=== PATIENT | male | born 1990 | race Caucasian/White ===

== ENCOUNTER 2017-11-01 22:19 | Emergency (ER) | payer OTHER ==
--- NOTE | 2017-11-01 23:40 | XRay Report ---
FINAL REPORT PROCEDURE: XR CHEST ROUTINE 2V TECHNIQUE: PA and lateral chest radiographs were obtained. CPT 73497 HISTORY: frequent cough w/thick white sputum COMPARISON: No prior studies are available for comparison. FINDINGS: Heart: Normal. Mediastinum/Vessels: Normal. Lungs/Pleural space: Normal. Bony thorax: No acute osseous abnormality. Other: IMPRESSION: Normal examination.
--- NOTE | 2017-11-02 00:42 | Emergency Department Report ---
ED Medical Clearance HPI - General Chief complaint: Medical Clearance Stated complaint: FATIGUE, CONGESTION Time Seen by Provider: 11/01/17 23:41 Source: patient Mode of arrival: Ambulatory - History of Present Illness Initial comments: 27-year-old male with past medical history none presents with complaint of concern for having cystic fibrosis. Patient states that he has had intermittent cough for more than 5 years. Patient states he has seen his primary care doctor for this issue but it is a concern to him and is asking to even be tested for cystic fibrosis or to be referred to a automatic driller and reamer. Patient denies any chest pain shortness of breath fevers chills or productive cough at this time. States he occasionally gets cough with whitish sputum. Patient has no family history of cystic fibrosis. Denies being a smoker or using any drugs. Patient is awake alert and oriented 3. 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 Patient denies any mental health disorders or illicit substance use. MD Complaint: medical clearance request, other Onset/Timin -: year(s) Associated Symptoms: cough Home medications: Previous Rx's Medication Instructions Recorded Last Taken Type Brompheniramine/Pseudoephed/Dm 10 ml PO Q6H PRN #1 syrup 11/02/17 Unknown Rx [Bromfed Dm Cough Syrup] Allergies/Adverse reactions: Allergies Allergy/AdvReac Type Severity Reaction Status Date / Time No Known Allergies Allergy Unverified 11/01/17 22:37 ED Review of Systems ROS: Stated complaint: FATIGUE, CONGESTION Other details as noted in HPI Constitutional: denies: chills, fever Eyes: denies: eye pain, eye discharge, vision change ENT: denies: ear pain, throat pain Respiratory: cough (persistent intermittent cough for 5 years). denies: shortness of breath, wheezing Cardiovascular: denies: chest pain, palpitations Endocrine: no symptoms reported Gastrointestinal: denies: abdominal pain, nausea, diarrhea Genitourinary: denies: urgency, dysuria Musculoskeletal: denies: back pain, joint swelling, arthralgia Skin: denies: rash, lesions Neurological: denies: headache, weakness, paresthesias Psychiatric: denies: anxiety, depression Hematological/Lymphatic: denies: easy bleeding, easy bruising ED Past Medical Hx - Past Medical History Previous Medical History?: No - Surgical History Past Surgical History?: No - Social History Smoking Status: Never Smoker Substance Use Type: None - Medications Home Medications: Home Medications Medication Instructions Recorded Confirmed Last Taken Type Brompheniramine/Pseudoephed/Dm 10 ml PO Q6H PRN #1 syrup 11/02/17 Unknown Rx [Bromfed Dm Cough Syrup] ED Physical Exam - General Limitations: No Limitations General appearance: alert, in no apparent distress - Head Head exam: Present: atraumatic, normocephalic - Eye Eye exam: Present: normal appearance, PERRL, EOMI - ENT ENT exam: Present: mucous membranes moist - Neck Neck exam: Present: normal inspection - Respiratory Respiratory exam: Present: normal lung sounds bilaterally (lungs are clear to auscultation bilaterally). Absent: respiratory distress - Cardiovascular Cardiovascular Exam: Present: regular rate, normal rhythm. Absent: systolic murmur, diastolic murmur, rubs, gallop - GI/Abdominal GI/Abdominal exam: Present: soft, normal bowel sounds - Rectal Rectal exam: Present: deferred - Extremities Exam Extremities exam: Present: normal inspection - Back Exam Back exam: Present: normal inspection - Neurological Exam Neurological exam: Present: alert, oriented X3 - Psychiatric Psychiatric exam: Present: normal affect, normal mood - Skin Skin exam: Present: warm, dry, intact, normal color. Absent: rash ED Course Vital Signs 11/01/17 11/02/17 22:37 01:00 Temperature 98.7 F 98.0 F Pulse Rate 81 78 Respiratory 18 18 Rate Blood Pressure 116/87 Blood Pressure 115/67 [Right] O2 Sat by Pulse 97 100 Oximetry ED Medical Decision Making - Medical Decision Making A/P: Possible hypochondriac disorder, medical clearance 1- chest x-ray within normal limits, vital signs within normal limits. Patient has no cough exhibited during my examination of 2- As patient expresses that he has had symptoms for more than 5 years and they have not changed patient should seek outpatient follow-up. I referred him to primary care pulmonology and outpatient gastroenterology. Patient also expressed concern that he may have ulcerative colitis. Denies any abdominal pain or bloody diarrhea. 3-it is possible patient may have mental fixation or compulsion on having a physical disease he may not actually have. Patient denies any hallucinations or drug use. Denies any history of mental health disorder. Patient has no overt signs of physical disease upon examination. 4- vital signs stable for discharge ED Disposition Clinical Impression: Physically well but worried Disposition: DC-01 TO HOME OR SELFCARE Is pt being admited?: No Does the pt Need Aspirin: No Condition: Stable Prescriptions: Brompheniramine/Pseudoephed/Dm [Bromfed Dm Cough Syrup] 10 ml PO Q6H PRN #1 syrup PRN Reason: Cough Referrals: STEFANIE MCLEOD MD [Staff Physician] - 3-5 Days [facility] [Provider Group] - 3-5 Days AUBRIE HERRERA MD [Staff Physician] - 3-5 Days Time of Disposition: 00:55
[2017-11-02 01:06] VITALS: BP 115/67
== END 2017-11-02 01:00 | disposition home or self-care (01) ==
LOC: ED 22:19
DX: Z71.1 Person with feared health complaint in whom no diagnosis is made (principal)
CPT/HCPCS: 71046; 99283